=== PATIENT | male | born 2000 | race Caucasian/White ===

== ENCOUNTER 2023-05-31 15:17 | Emergency (ER) | payer SELFPAY ==
[2023-05-31 15:21] VITALS: BP 154/100; PULSE 120; RESP 20; TEMP 37.3; O2SAT 97; BMI 36.3
--- NOTE | 2023-05-31 16:46 | ED.GENADUL1 ---
HPI - General Adult General Chief complaint: Recheck/Abnormal Lab/Rx Stated complaint: WOUND CHECK Time Seen by Provider: 05/31/23 15:26 Source: patient Mode of arrival: walk-in Limitations: no limitations History of Present Illness HPI narrative: Patient is a 22 yo male who is presenting with his 3rd episode upon out assist the last 2 months. Patient is here locally from [place]. Patient be here another 2 weeks. . Patient has no fever or chills. He is not diabetic. Agents had no trauma. Patient has no abdominal pain, nausea or vomiting. No bowel or bladder changes. No other acute complaints. Patient stated this started approximately 3 days ago is been slowly getting worse. He is having pain with ambulation. . All systems are negative except as noted/marked. All systems reviewed and otherwise negative. . Nurses note and vital signs reviewed and patient is not hypoxic. General: The patient appears well and in no apparent distress. Patient is resting comfortably on cart. Patient is not toxic, lethargic, or listless Skin: Warm, dry, no pallor noted. There is no rash noted. No petechiae, purpura. Patient has a 3 x 5 cm area of mild redness, moderate tenderness to palpation area of a metal status. The area is demarcated somewhat, left is more fluctuant, not indurated, and more painful with moderate tenderness to palpation, approximately 2 x 2 centimeters. The upper right area of the pilonidal cyst is approximately 3 x 1 cm, mild tenderness to palpation, not fluctuant, positive indurated; no secondary signs of cellulitis or other abscesses locally. Head: Normocephalic, atraumatic Eye: Normal conjunctiva, no drainage, EOMI. PERRL Ears, Nose, Mouth, and Throat: oral mucosa is moist. Nares patent. Mouth without vesicles. Cardiovascular: Regular Rate and Rhythm, no murmur, gallop, rub Respiratory: Patient is in no distress, no accessory muscle use, lungs are clear to auscultation, no wheezing, rales or rhonchi Back: non-tender, no CVA tenderness bilaterally to percussion. No CT LS midline pain. See skin exam GI: soft, obese, no tenderness to palpation, no masses appreciated. No rebound, guarding, or rigidity noted. No flank pain bilateral, No distention Musculoskeletal: Patient has full range of motion of all of the extremities, no motor, sensory, or focal neurological deficits Neurological: A&O x3, normal speech Psychiatric: Cooperative Related Data Previous Rx's Medication Instructions Recorded hydrocodone 5 mg-acetaminophen 325 1 tab PO Q4H PRN pain #8 tabs 05/31/23 mg tablet sulfamethoxazole 800 1 tab PO BID 7 days #14 tabs 05/31/23 mg-trimethoprim 160 mg tablet (Bactrim DS) Allergies Allergy/AdvReac Type Severity Reaction Status Date / Time No Known Drug Allergies Allergy Verified 05/31/23 15:24 Exam Constitutional Vital Signs, click to edit/add: Last Vital Signs Temp 99.1 F 05/31/23 15:21 Pulse 120 H 05/31/23 15:21 Resp 20 05/31/23 15:21 BP 154/100 H 05/31/23 15:21 Pulse Ox 97 05/31/23 15:21 O2 Del Method Room Air 05/31/23 15:21 Course Vital Signs Vital signs: Vital Signs Temperature 99.1 F 05/31/23 15:21 Pulse Rate 120 H 05/31/23 15:21 Respiratory Rate 20 05/31/23 15:21 Blood Pressure 154/100 H 05/31/23 15:21 Pulse Oximetry 97 05/31/23 15:21 Oxygen Delivery Method Room Air 05/31/23 15:21 Temperature 99.1 F 05/31/23 15:21 Pulse Rate 120 H 05/31/23 15:21 Respiratory Rate 20 05/31/23 15:21 Blood Pressure 154/100 H 05/31/23 15:21 Pulse Oximetry 97 05/31/23 15:21 Oxygen Delivery Method Room Air 05/31/23 15:21 Medical Decision Making [facility] Narrative Medical decision making narrative: Incision and drainage: A single layer of iodine was used to prep the area. Drapes were placed to ensure isolation of the abscess and surrounding skin tissue. A regional field block was performed with 1% lidocaine And 0.5 percent Marcaine, 10 mL used with 5-1 ratio of Marcaine to lidocaine. Incision was made with an 11 blade to the full dimension of the abscess, significant amount purulent material was expressed. Cultures were obtained and sent to the lab. The abscess was explored, the use of hemostats were used to break up the septum and loculations within the abscess. The cavity was irrigated with three 60 cc syringe of Peroxide. Plain, 0.25 packing was placed within the abscess. A dry sterile dressing was placed. Patient tolerated the procedure well and will be discharged with Keflex, Bactrim and a short course of analgesic medications. Patient is to follow-up in the next 2-3 days with PCP or ED to have area evaluated. Patient had a wick placed. Patient started on Bactrim, [place] was given. Patient understands warm compresses or sitz baths. Work note was given. Wound culture was done. Patient has not seen a surgeon yet, this is his 3rd bilateral cysts within the last 2 months. Patient is to the importance find a surgeon. Patient understands finishing antibiotic, warm compresses, and have the wick removed in 2 or 3 days for reassessment. Patient's heart procedure well without difficulty. No questions at discharge. Discharge Plan Discharge Chief Complaint: Recheck/Abnormal Lab/Rx Clinical Impression: Pilonidal cyst with abscess Patient Disposition: Home, Self-Care Condition: Fair Prescriptions / Home Meds: New hydrocodone-acetaminophen 5-325 mg tablet 1 tab PO Q4H PRN (Reason: pain) Qty: 8 0RF sulfamethoxazole-trimethoprim [Bactrim DS] 800-160 mg tablet 1 tab PO BID 7 Days Qty: 14 0RF Instructions: Pilonidal Cyst (ED), Abscess (ED), Sitz Bath (DC) Additional Instructions: Continue warm sitz baths, warm compresses. Finish antibiotic. You must follow-up with surgeon as discussed at length at bedside for your 3rd pilonidal cyst within 2 months for Definitive care You need to follow-up With PCP, urgent care, or surgeon to have ear wick removed in 2 or 3 days, also he needs to call to make an appointment with the surgeon for definitive care. Work note given Stand Alone Forms: Work/School Release, Portal Instructions Referrals: Physician,Non-Staff, [Primary Care Provider] - 1 week Aaron Rivas MD [Physician] - 1 week
== END 2023-05-31 17:48 | disposition home or self-care (01) ==
PROVIDERS: Emergency Provider Emergency Medicine
DX: L05.01 Pilonidal cyst with abscess (principal)
CPT/HCPCS: 10080; 87070; 99282

== ENCOUNTER 2023-06-03 15:58 | Emergency (ER) | payer SELFPAY ==
[2023-06-03 16:00] VITALS: BP 148/100; PULSE 91; RESP 16; TEMP 36.7; O2SAT 97; BMI 35.6
--- NOTE | 2023-06-03 16:22 | ED.SKABFB1 ---
HPI - Skin/Abscess/Foreign Bdy General Chief complaint: Skin/Abscess/Foreign Body Stated complaint: incision draining Time Seen by Provider: 06/03/23 16:03 Source: patient Mode of arrival: walk-in Limitations: no limitations History of Present Illness HPI narrative: pilonidal cyst/abscess drained 05/31/[address] Weber. He didn't start the antibiotic until yesterday. He has gauze packing in the incision. He came to the ED for wound recheck and to see if he can remove the gauze and to see if he is OK to go to work in 2 days. No systemic symptoms. He did not call to schedule follow up with the surgeon. Related Data Previous Rx's Medication Instructions Recorded hydrocodone 5 mg-acetaminophen 325 1 tab PO Q4H PRN pain #8 tabs 05/31/23 mg tablet sulfamethoxazole 800 1 tab PO BID 7 days #14 tabs 05/31/23 mg-trimethoprim 160 mg tablet (Bactrim DS) Allergies Allergy/AdvReac Type Severity Reaction Status Date / Time No Known Drug Allergies Allergy Verified 05/31/23 15:24 Exam Narrative Exam Narrative: Nurses notes and vital signs reviewed and patient is not hypoxic. afebrile General: Well-appearing and in no apparent distress. Skin: Warm, dry, no pallor noted. Eye: Pupils are equal, round and EOMI. No scleral icterus. Cardiovascular: normal peripheral perfusion. Respiratory: No accessory muscle use or respiratory distress. Back: No midline thoracic or lumbar vertebral tenderness. Packing in place at location of I&D. There is no surrounding erythema, warmth or palpable abscess. however there is still some milky discharge along the gauze. Musculoskeletal: normal ROM Neurological: A&O x4. No truncal ataxia. Moves all extremities. Sensation intact. Psychiatric: Cooperative and interactive. Normal mood and affect. Constitutional Vital Signs, click to edit/add: Last Vital Signs Temp 98.1 F 06/03/23 16:00 Pulse 91 H 06/03/23 16:00 Resp 16 06/03/23 16:00 BP 148/100 H 06/03/23 16:00 Pulse Ox 97 06/03/23 16:00 O2 Del Method Room Air 06/03/23 16:00 Course Vital Signs Vital signs: Vital Signs Temperature 98.1 F 06/03/23 16:00 Pulse Rate 91 H 06/03/23 16:00 Respiratory Rate 16 06/03/23 16:00 Blood Pressure 148/100 H 06/03/23 16:00 Pulse Oximetry 97 06/03/23 16:00 Oxygen Delivery Method Room Air 06/03/23 16:00 Temperature 98.1 F 06/03/23 16:00 Pulse Rate 91 H 06/03/23 16:00 Respiratory Rate 16 06/03/23 16:00 Blood Pressure 148/100 H 06/03/23 16:00 Pulse Oximetry 97 06/03/23 16:00 Oxygen Delivery Method Room Air 06/03/23 16:00 MDM - Skin/Abscess/Foreign Bdy MDM Narrative Medical decision making narrative: patient did not take antibiotics until 2 days after prescribed - only taken 2 doses. Although the incision site looks good there is still some milky drainage along the gauze so i will not remove at this time. Encouraged the patient to take the antibiotics as prescribed and he can pull the gauze in 2 mornings if the pain remains controlled/decreased. He can also return to work that day. If he worsens he can see Dr Rivas for follow up - referral information was given today at discharge - or return to the ED if Dr Rivas is unavailable. Discharge Plan Discharge Chief Complaint: Skin/Abscess/Foreign Body Clinical Impression: Pilonidal cyst with abscess Patient Disposition: Home, Self-Care Time of Disposition Decision: 16:22 Prescriptions / Home Meds: No Action hydrocodone-acetaminophen 5-325 mg tablet 1 tab PO Q4H PRN (Reason: pain) Qty: 8 0RF sulfamethoxazole-trimethoprim [Bactrim DS] 800-160 mg tablet 1 tab PO BID 7 Days Qty: 14 0RF Instructions: Pilonidal Cyst (ED), Abscess Follow-up (ED) Stand Alone Forms: Portal Instructions Referrals: Aaron Rivas MD [Physician] - 06/06/23
== END 2023-06-03 16:41 | disposition home or self-care (01) ==
PROVIDERS: Emergency Provider Emergency Medicine
DX: L05.01 Pilonidal cyst with abscess (principal)
CPT/HCPCS: 99281